=== PATIENT | male | born 1975 | race Two or more races ===

== ENCOUNTER 2024-04-08 11:25 | Emergency (ER) | payer OTHER, SELFPAY ==
[2024-04-08 11:39] VITALS: BP 128/81; PULSE 75; RESP 18; TEMP 36.7; O2SAT 100; BMI 21.9
--- NOTE | 2024-04-08 11:48 | XR_ITS ---
Examination: PA lateral chest 2 views TECHNIQUE: Upright PA lateral chest 2 views Exam date and time: April 08, 2024 1157 hours INDICATIONS: Chest pain one year FINDINGS: Normal heart size Retrocardiac gastric hernia Kyphosis thoracolumbar spine secondary to wedging of lower dorsal vertebral bodies Subtle numerous small nodular densities throughout the lungs, clinical correlation advised IMPRESSION: Subtle subcentimeter nodular densities throughout both lungs, differential would include early pulmonary nodular metastatic disease Recommend CT chest without contrast follow-up
--- NOTE | 2024-04-08 11:48 | XR_ITS ---
Examination: CT abdomen and pelvis without contrast. Coronal 3-D reconstructions. Sagittal 2-D reconstructions. Date and time of exam:April 08, 2024 1253 hours INDICATIONS: Left-sided flank and abdominal pain beginning one hour ago CTDI: vol (mGy): 1.75 DLP: (mGycm): 540 Technique: Axial images of the abdomen have been obtained, 3 mm slice thickness Intravenous contrast material has not been administered. Low dose protocols were performed. One or more of the following dose reduction techniques were used; automated exposure control, adjustment of the mA and/or KV according to patient size, use of iterative reconstruction technique. Findings: No focal liver or splenic lesions Absent gallbladder No pancreatic or adrenal mass No renal or ureteral calculi Normal appendix Aorta normal size No bowel obstruction or diverticulitis Prostate calcifications, no prostatomegaly Contracted urinary bladder Abnormal T12, T11, T10 vertebral bodies, cortical bone destruction T12 T11 and T10 with paraspinal soft tissue mass IMPRESSION: No renal or ureteral calculi, no hydronephrosis Extensive cortical bone destruction T10, T11, T12, consider primary metastatic tumor Recommend MRI cervical thoracic lumbar spine post contrast follow-up
--- NOTE | 2024-04-08 11:49 | PD.EDRME ---
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 Patient states this pain has been going on for 4 months but has progressively gotten worse in the last week. I have greeted and performed a focused initial assessment of this patient. A comprehensive ED assessment and evaluation of the patient, analysis of all test results, and completion of the medical decision making process will be conducted by additional ED providers. Chief Complaint: Abdominal Pain Vital signs: Vital Signs Temperature 98.0 F 04/08/24 11:39 Pulse Rate 75 04/08/24 11:39 Respiratory Rate 18 04/08/24 11:39 Blood Pressure 128/81 04/08/24 11:39 Pulse Oximetry (%) 100 04/08/24 11:39 Oxygen Delivery Method Room Air 04/08/24 11:39 Vital signs reviewed by provider: Yes
[2024-04-08] MEDS: KETOROLAC INJ 60 MG/2 ML VIAL 30 MG IM (12:10)
[2024-04-08 12:33] LABS: Basophils % (Auto) 1 % (0-2.5); Eosinophils # (Auto) 0.1 Thou/mm3 (0.0-0.5); Eosinophils % (Auto) 3 % (0-10); Hematocrit 40.8 % (41.0-53.0); Hemoglobin 13.5 g/dL (13.5-16.0); Immature Granulocytes % (Auto) 0 % (0-0); Immature Granulocytes Auto 0.01 Thou/mm3 (0.00-0.00); Lymphocytes # (Auto) 0.8 Thou/mm3 (1.0-4.8); Lymphocytes % (Auto) 18 % (10-50); Mean Corpuscular HGB Conc 33.1 g/dl (31.0-37.0); Mean Corpuscular Hemoglobin 28.4 pg (25.0-35.0); Mean Corpuscular Volume 86 fL (80-100); Monocytes # (Auto) 0.3 Thou/mm3 (0.0-0.8); Monocytes % (Auto) 7 % (0-12); Neutrophils # (Auto) 2.9 Thou/mm3 (1.8-7.7); Neutrophils % (Auto) 70 % (37-80); Nucleated Red Blood Cell % 0 /100 WBC (0); Platelet Count 293 Thou/mm3 (140-440); RDW Standard Deviation 53.5 fL (35.1-43.9); Red Blood Count 4.76 Miln/mm3 (4.50-5.90); White Blood Count 4.2 Thou/mm3 (3.8-10.6)
[2024-04-08 12:56] LABS: Alanine Aminotransferase 19 U/L (10-49); Albumin, Serum 4.9 gm/dL (3.5-5.0); Albumin/Globulin Ratio 1.3 (1.2-2.2); Alkaline Phosphatase 155 U/L (46-116); Anion Gap 10 (7-16); Aspartate Amino Transferase 23 U/L (0-34); BUN/Creatinine Ratio 8 Ratio (12-20); Bilirubin,Total 0.3 mg/dL (0.3-1.2); Blood Urea Nitrogen 11 mg/dL (9-23); Calcium 9.5 mg/dL (8.3-10.6); Calcium (Corrected) 9.5 mg/dL (8.5-10.1); Carbon Dioxide 25.6 mMol/L (20.0-31.0); Chloride 103 mMol/L (98-107); Creatinine (Component) 1.3 mg/dL (0.6-1.3); Globulin 3.8 gm/dL (2.3-3.5); Glucose 119 mg/dL (74-106); Lipase 42 U/L (12-53); Osmolality,Calculated 277 (275-295); Potassium 3.8 mMol/L (3.4-5.1); Sodium 139 mMol/L (136-145); Total Protein 8.7 gm/dL (5.7-8.2); eGFR > 60 See Note
[2024-04-08 13:41] LABS: Collection Type, Urine Clean Catch; Squamous Epithelial Cell,Urine 0 /hpf (0-5)
[2024-04-08 14:03] LABS: Bilirubin,Urine Negative (Negative); Blood,Urine Negative (Negative); Clarity,Urine Turbid (Clear/Hazy); Color,Urine Yellow (Lt Yel-Yel); Glucose, Urine Negative (Negative); Hyaline Casts,Urine 1 /hpf (0-1); Ketones,Urine Negative (Negative); Leukocyte Esterase,Urine Negative (Negative); Nitrite,Urine Negative (Negative); Protein,Urine 2+ (Neg - Trace); RBC,Urine 3 /hpf (0-3); Specific Gravity,Urine 1.017 (1.001-1.035); Urobilinogen,Urine Negative mg/dL (0.0-1.0); WBC,Urine 2 /hpf (0-5)
[2024-04-08 14:06] LABS: Sperm,Urine Present
[2024-04-08 14:45] VITALS: BP 132/75; PULSE 56; RESP 20; TEMP 36.6; O2SAT 100
[2024-04-08 17:48] VITALS: BP 119/76; PULSE 65; RESP 18; TEMP 37; O2SAT 99
--- NOTE | 2024-04-08 18:01 | PD.EDADULT ---
ED General RME/HPI General Chief complaint: Abdominal Pain Stated complaint: L) ABD PAIN X 4 MOS Time Seen by Provider: 04/08/24 17:46 Arrival date/time: 04/08/24 11:25 CC: Left mid to lower back pain and left flank pain HPI ongoing for the past 8 months but worse in the last 4 months denies any numbness or tingling lower extremities cough shortness of breath or difficulty breathing. 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 Patient has no other complaints. 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 Patient states this pain has been going on for 4 months but has progressively gotten worse in the last week. I have greeted and performed a focused initial assessment of this patient. A comprehensive ED assessment and evaluation of the patient, analysis of all test results, and completion of the medical decision making process will be conducted by additional ED providers. Related Data Previous Rx's ?Medication ?Instructions ?Recorded meloxicam 7.5 mg tablet 7.5 mg PO QDAY #10 tabs 04/08/24 Allergies Allergy/AdvReac Type Severity Reaction Status Date / Time NKA* Allergy Uncoded 04/08/24 11:29 Review of Systems Review of Systems Narrative Review of Systems: GEN: No fever, no chills, no weight loss EYES: No discharge, no visual changes, no pain HEENT: No ear pain, no congestion, no sore throat PULM: No shortness of breath, no cough, no congestion CV: No chest pain, no dyspnea on exertion, no palpitations GI: No nausea, no vomiting, no diarrhea, no pain, no constipation : No frequency, no urgency, no dysuria MUSC/SKEL: No joint pain, + back pain SKIN: No rash PSYCH: No hallucinations, no depression HEME/LYMPH: No easy bleeding or bruising tendencies NEURO: No weakness, no headache Past Medical History Social History SMOKING STATUS: Never smoker ED Exam Narrative Physical exam: [General: Not in any acute distress Head normocephalic HEENT: Within acceptable limits Neck is supple nontender Chest equal chest rise nontender to palpation Respiratory: Clear to auscultation no wheezes crackles or rubs CV: Rate rhythm is regular no murmurs rubs or clicks Abdomen is flat, soft nontender no masses positive bowel sounds all 4 quadrants Back: No CVA tenderness no spinous process tenderness from cervical spine thoracic and lumbar spine Skin: Intact no petechiae rash induration ulceration or crepitus Extremities: Moving all extremity against resistance cap refill less than 2 seconds neurosensory intact Neuro: Awake alert oriented x3 Glascow coma 15 no focal deficits] Course Quality Measures none Orders Category Date Time Status CT abdomen pelvis wo con Stat Exams 04/08/24 11:48 Completed XR chest 2V Stat Exams 04/08/24 11:48 Completed CBC Stat Lab 04/08/24 12:06 Completed CMP [Comprehensive Metabolic Panel] Stat Lab 04/08/24 12:06 Completed Lipase Stat Lab 04/08/24 12:06 Completed UA [Urinalysis] Stat Lab 04/08/24 13:26 Completed Urine Culture Stat Lab 04/08/24 13:26 Received Ketorolac Inj [Toradol Inj] Med 04/08/24 11:48 Discontinued 30 mg IM X1 ONE Vital Signs Vital signs: Vital Signs Temperature 98.0 F 04/08/24 11:39 Pulse Rate 75 04/08/24 11:39 Respiratory Rate 18 04/08/24 11:39 Blood Pressure 128/81 04/08/24 11:39 Pulse Oximetry (%) 100 04/08/24 11:39 Oxygen Delivery Method Room Air 04/08/24 11:39 [facility] Patient data External records reviewed:: [facility] previous records Clinical information provided by:: patient Social determinants that could affect healthcare access:: none Patient has the following chronic illnesses:: Valley fever How is presenting disease/condition affected by chronic disease/condition?: uneffected by Evaluation data The following diagnostics were reviewed and interpreted by me:: lab results and radiology exam(s) Lab and/or radiology exams considered but not ordered:: CBC shows no acute leukocytosis anemia thrombocytopenia CMP shows no acute electrolyte imbalances renal impairment transaminitis or T. bili elevation Urine shows 2+ protein no other acute finding X-ray of the chest shows multiple subtle masses. A CT of the abdomen shows there is extensive erosion of T 9,10, and 11 suspicious of metastatic disease. Interpretation Summary: Highly suspicious for metastatic disease that this may be a nerve impingement at the thoracic level where there is erosion and mass placement. Patient be discharged home with copies of his ITT results to follow-up promptly with his PCP for outpatient MRI or biopsy is necessary. Medications Medications considered but not ordered:: None Medication administrations:: Medication Administration History Discontinued Medications Ketorolac Tromethamine (Ketorolac Inj 60 Mg/2 Ml Vial) 30 mg IM X1 ONE Stop: 04/08/24 11:49 Last Admin: 04/08/24 12:10 Dose: 30 mg Documented By: KM None Consultations Consultation(s) initiated? (list below): No Diagnosis Differential Diagnosis ED Complaint MDM: Metastatic disease flank pain pulmonary masses Most likely diagnosis given after review of the tests above:: Metastatic disease flank pain pulmonary masses Admission Indicated Admission indicated?: not indicated Explain why admission is indicated or not indicated:: Stable for discharge Admission Request Was there a request for admission?: No Disposition Plan Disposition Plan: Discharge Discharge Attestation Discharge Attestation: The patient and all family members were given an opportunity to ask questions and understood the discharge instructions. Discharge instructions specifically effects, indications for sooner follow up or return to the emergency department, and the expected course of current diagnosis. Patient condition: Stable Medical Decision Making Differential Diagnosis Differential Diagnosis: Metastatic disease flank pain pulmonary masses Lab Data 04/08/24 12:06 04/08/24 12:06 Labs: Lab Results 04/08/24 04/08/24 Range/Units 12:06 13:26 WBC 4.2 (3.8-10.6) Thou/mm3 RBC 4.76 (4.50-5.90) Miln/mm3 Hgb 13.5 (13.5-16.0) g/dL Hct 40.8 L (41.0-53.0) % MCV 86 (80-100) fL MCH 28.4 (25.0-35.0) pg MCHC 33.1 (31.0-37.0) g/dl RDW Std Deviation 53.5 H (35.1-43.9) fL Plt Count 293 (140-440) Thou/mm3 Neut % (Auto) 70 (37-80) % Lymph % (Auto) 18 (10-50) % Me[place] % (Auto) 7 (0-12) % Eos % (Auto) 3 (0-10) % Baso % (Auto) 1 (0-2.5) % Neut # (Auto) 2.9 (1.8-7.7) Thou/mm3 Lymph # (Auto) 0.8 L (1.0-4.8) Thou/mm3 [place] # (Auto) 0.3 (0.0-0.8) Thou/mm3 Eos # (Auto) 0.1 (0.0-0.5) Thou/mm3 Baso # (Auto) 0.0 (0.0-0.2) Thou/mm3 Immature Gran # (Auto) 0.01 H (0.00-0.00) Thou/mm3 Absolute Nucleated RBC 0.00 (0.00-0.00) Thou/mm3 Immature Gran % 0 (0-0) % Nucleated RBC % 0 (0) /100 WBC Sodium 139 (136-145) mMol/L Potassium 3.8 (3.4-5.1) mMol/L Chloride 103 (98-107) mMol/L Carbon Dioxide 25.6 (20.0-31.0) mMol/L Anion Gap 10 (7-16) BUN 11 (9-23) mg/dL Creatinine 1.3 (0.6-1.3) mg/dL Estim Creat Clear Calc 52.0 L (>60) mL/min eGFR > 60 (60 - ) See Note BUN/Creatinine Ratio 8 L (12-20) Ratio Glucose 119 H (74-106) mg/dL Calculated Osmolality 277 (275-295) Calcium 9.5 (8.3-10.6) mg/dL Corrected Calcium 9.5 (8.5-10.1) mg/dL Total Bilirubin 0.3 (0.3-1.2) mg/dL AST 23 (0-34) U/L ALT 19 (10-49) U/L Alkaline Phosphatase 155 H (46-116) U/L Total Protein 8.7 H (5.7-8.2) gm/dL Albumin 4.9 (3.5-5.0) gm/dL Globulin 3.8 H (2.3-3.5) gm/dL Albumin/Globulin Ratio 1.3 (1.2-2.2) Lipase 42 (12-53) U/L Ur Collection Type Clean Catch Urine Color Yellow (Lt Yel-Yel) Urine Clarity Turbid A (Clear/Hazy) Urine pH 6.0 (5.0-7.0) Ur Specific [place] 1.017 (1.001-1.035) Urine Protein 2+ A (Neg - Trace) Urine Glucose (UA) Negative (Negative) Urine Ketones Negative (Negative) Urine Blood Negative (Negative) Urine Nitrite Negative (Negative) Urine Bilirubin Negative (Negative) Urine Urobilinogen (Auto) Negative (0.0-1.0) mg/dL Ur Leukocyte Esterase Negative (Negative) Urine RBC 3 (0-3) /hpf Urine WBC 2 (0-5) /hpf Ur Squamous Epith Cells 0 (0-5) /hpf Urine Bacteria None (None) Hyaline Casts 1 (0-1) /hpf Urine Sperm Present A (None) Discharge Plan Plan Patient Disposition: HOME (Self Care) Patient condition on transfer: Stable Prescriptions/Referrals Prescriptions/Med Rec: New meloxicam 7.5 mg tablet 7.5 mg PO QDAY Qty: 10 0RF Referrals: Angel Delatorre [Primary Care Provider] - In 1 week Problem List Clinical Impression: Lung mass, Back pain, Mass of thoracic vertebra Patient/Caregiver Discharge Instructions Education Materials: ED Back Pain (Acute or Chronic), ED Pulmonary Nodule, Solitary Additional Instructions: Follow-up with your primary care provider regarding the imaging reports I gave you if there is a worsening of symptoms return the emergency room for reevaluation peer Print Language: [place] Citizen Stand Alone Forms: Ashley Award Info., Patient Portal Info Letter, Work/School Release PA/SPIRITS MODEL Supervising Physician PA/SPIRITS MODEL Supervising Physician: Martín Griffith ENP
== END 2024-04-08 18:30 | disposition home or self-care (01) ==
PROVIDERS: Nurse Practitioner Family; Emergency Provider Emergency Medicine; PCP Internal Medicine
DX: R91.8 Other nonspecific abnormal finding of lung field (principal); M48.8X4 Other specified spondylopathies, thoracic region
CPT/HCPCS: 36415; 71046; 74176; 80053; 81001; 83690; 85025; 87086; 96372; 99283; J1885